=== PATIENT | male | born 1975 | race Two or more races ===

== ENCOUNTER → 2024-01-25 | Outpatient (CLI) | payer OTHER, MEDICAID, SELFPAY ==
--- NOTE | 2024-01-25 10:15 | XR_ITS ---
Examination: Abdomen sonogram, complete Date and time of exam: January 25, 2024 1011 hours INDICATIONS: Diagnosis chronic hepatitis C diagnosis one year ago. Technique: Multiple real-time grayscale transabdominal sonographic images of the abdomen have been obtained. Findings: Multiple gallstones, the largest 16 mm Gallbladder wall 0.5 cm Common bile duct 0.3 cm Pancreatic head 2.9 cm Proximal distal aorta visualized not enlarged Liver 16.9 cm fatty infiltration irregular contour no focal liver lesions Right kidney 11.0 x 5.1 x 5.4 cm cortex 2.0 cm Left kidney 10.6 x 6.2 x 5.5 cm cortex 2.1 cm Mild bilateral renal parenchymal scar formation Spleen 11.7 cm IMPRESSION: Cholelithiasis Abnormally thickened gallbladder wall, clinical correlation advised, consider HIDA scan or MRCP follow-up to exclude cholecystitis Fatty liver, primary hepatocellular disease pattern
== END | disposition home or self-care (01) ==
PROVIDERS: PCP Internal Medicine; Referring Provider Internal Medicine; Visit Provider Internal Medicine
DX: K80.20 Calculus of gallbladder without cholecystitis without obstruction (principal); K82.8 Other specified diseases of gallbladder; K76.0 Fatty (change of) liver, not elsewhere classified
CPT/HCPCS: 76700

== ENCOUNTER → 2024-02-14 | Outpatient (CLI) | payer OTHER, MEDICAID, SELFPAY ==
[2024-02-14 14:42] LABS: Basophils # (Auto) 0.1 Thou/mm3 (0.0-0.2); Basophils % (Auto) 1 % (0-2.5); Eosinophils # (Auto) 0.2 Thou/mm3 (0.0-0.5); Eosinophils % (Auto) 3 % (0-10); Hematocrit 49.4 % (41.0-53.0); Hemoglobin 17.6 g/dL (13.5-16.0); Immature Granulocytes % (Auto) 0 % (0-0); Immature Granulocytes Auto 0.01 Thou/mm3 (0.00-0.00); Lymphocytes # (Auto) 1.7 Thou/mm3 (1.0-4.8); Lymphocytes % (Auto) 32 % (10-50); Mean Corpuscular HGB Conc 35.6 g/dl (31.0-37.0); Mean Corpuscular Hemoglobin 34.6 pg (25.0-35.0); Mean Corpuscular Volume 97 fL (80-100); Monocytes # (Auto) 0.7 Thou/mm3 (0.0-0.8); Monocytes % (Auto) 13 % (0-12); Neutrophils # (Auto) 2.7 Thou/mm3 (1.8-7.7); Neutrophils % (Auto) 51 % (37-80); Nucleated Red Blood Cell % 0 /100 WBC (0); Platelet Count 145 Thou/mm3 (140-440); RDW Standard Deviation 42.6 fL (35.1-43.9); Red Blood Count 5.08 Miln/mm3 (4.50-5.90); White Blood Count 5.2 Thou/mm3 (3.8-10.6)
[2024-02-14 15:21] LABS: Amphetamine/Methamp Scrn,U Positive (Negative); Barbiturate Screen,Urine Negative (Negative); Benzodiazepines Screen,Urine Negative (Negative); Benzoylecgonine Screen, Ur Negative (Negative); Fentanyl Screen,Urine Negative (Negative); Opiate Screen,Urine Negative (Negative); THC Screen,Urine Negative (Negative)
[2024-02-14 15:30] LABS: Alanine Aminotransferase 204 U/L (10-49); Albumin, Serum 4.6 gm/dL (3.5-5.0); Albumin/Globulin Ratio 1.7 (1.2-2.2); Alkaline Phosphatase 123 U/L (46-116); Anion Gap 7 (7-16); Aspartate Amino Transferase 101 U/L (0-34); BUN/Creatinine Ratio 12 Ratio (12-20); Bilirubin,Total 0.6 mg/dL (0.3-1.2); Blood Urea Nitrogen 11 mg/dL (9-23); Calcium 9.7 mg/dL (8.3-10.6); Calcium (Corrected) 9.7 mg/dL (8.5-10.1); Carbon Dioxide 29.6 mMol/L (20.0-31.0); Cardiac Risk Estimate 3.4 RATIO (4.0-6.7); Chloride 104 mMol/L (98-107); Cholesterol 175 mg/dL (132-200); Creatinine (Component) 0.9 mg/dL (0.6-1.3); Globulin 2.7 gm/dL (2.3-3.5); Glucose 91 mg/dL (74-106); HDL Cholesterol 51 mg/dL (40-60); LDL Cholesterol,Calculated 84 mg/dL (0-130); Osmolality,Calculated 280 (275-295); Potassium 4.4 mMol/L (3.4-5.1); Sodium 141 mMol/L (136-145); Thyroid Stimulating Hormone 0.48 uIU/mL (0.55-4.78); Total Protein 7.3 gm/dL (5.7-8.2); Triglycerides 201 mg/dL (30-150); eGFR > 60 See Note
[2024-02-14 15:34] LABS: Folate > 24.00 ng/mL (>5.38); Vitamin B12 552 pg/mL (211-911)
[2024-02-14 16:08] LABS: Glucose Estimated Average 94 mg/dL (80-131); Hemoglobin A1C 4.9 % Hgb (4.8-6.0)
== END | disposition home or self-care (01) ==
LOC: COPL 13:05
PROVIDERS: PCP Internal Medicine; Referring Provider Internal Medicine; Visit Provider Internal Medicine
DX: B18.2 Chronic viral hepatitis C (principal); F31.9 Bipolar disorder, unspecified; R74.01 Elevation of levels of liver transaminase levels; F20.9 Schizophrenia, unspecified; K80.20 Calculus of gallbladder without cholecystitis without obstruction; F10.939 Alcohol use, unspecified with withdrawal, unspecified; F19.10 Other psychoactive substance abuse, uncomplicated
CPT/HCPCS: 36415; 80053; 80061; 80307; 82607; 82746; 83036; 84443; 85025

== ENCOUNTER 2024-03-15 10:30 | Emergency (ER) | payer OTHER, MEDICAID, SELFPAY ==
--- NOTE | 2024-03-15 11:22 | PD.EDSKIN ---
ED Skin Abcess FB-RME/HPI General Chief complaint: Skin/Abscess/Foreign Body Stated complaint: left lower leg bit by spider last night Time Seen by Provider: 03/15/24 10:32 Arrival date/time: 03/15/24 10:30 49-year-old male presents with concerns for spider bite to the left leg patient ports no fever nausea or vomiting reports he was bit by a spider last night Limitations: no limitations Related Data Previous Rx's ?Medication ?Instructions ?Recorded IBU 800 mg tablet (ibuprofen) 800 mg PO Q6H PRN pain #30 tabs 01/26/21 meloxicam 7.5 mg tablet 7.5 mg PO QDAY #7 tabs 10/28/21 ibuprofen 600 mg tablet 600 mg PO Q6H #30 tabs 09/08/22 ibuprofen 800 mg tablet 800 mg PO TID PRN pain #30 tabs 07/21/23 acetaminophen 325 mg capsule 650 mg (2 x 325 mg) PO QID PRN 12/11/23 (Tylenol) fever or pain #30 caps ibuprofen 600 mg tablet 600 mg PO Q8H PRN pain #20 tabs 12/11/23 bacitracin 500 unit/gram topical 1 applic topical TID 7 days #28.4 03/15/24 ointment grams ibuprofen 600 mg tablet 600 mg PO Q6H #30 tabs 03/15/24 Allergies Allergy/AdvReac Type Severity Reaction Status Date / Time No Known Allergies Allergy Verified 03/15/24 10:31 Review of Systems Review of Systems Systems Reviewed: All systems reviewed, normal except as documented Constitutional Constitutional: Reports system reviewed and no additional complaints, except as documented, Denies fever(s) and Denies headache(s) Eyes Eyes: Reports system reviewed and no additional complaints, except as documented and Denies blurry vision ENT Ears, Nose, Mouth, and Throat: Reports system reviewed and no additional complaints, except as documented, Denies headache(s), Denies nasal congestion and Denies nasal discharge Cardiovascular Cardiovascular: Reports system reviewed and no additional complaints, except as documented, Denies chest pain and Denies dyspnea Respiratory Respiratory: Reports system reviewed and no additional complaints, except as documented, Denies chest congestion, Denies cough and Denies dyspnea Gastrointestinal Gastrointestinal: Reports system reviewed and no additional complaints, except as documented and Denies abdominal pain Integumentary/Breasts Skin/Breast: Reports system reviewed and no additional complaints, except as documented, Denies rash and Reports other (Insert bite left leg) Neurologic Neurologic: Reports system reviewed and no additional complaints, except as documented, Reports as per HPI and Denies headache(s) Past Medical History Past Medical History NEUROLOGIC: Negative Neurological Disorders CARDIAC: Negative Cardiac Disorders ED Exam General Limitations: Present no limitations General appearance: Present alert and in no apparent distress Head Head exam: Present atraumatic Eye Eye exam: Present normal appearance, PERRL and EOMI ENT ENT exam: Present normal exam, normal oropharynx and mucous membranes moist Neck Neck exam: Present normal inspection, full ROM and trachea midline Chest Chest inspection: Present normal inspection and symmetric chest wall rise Respiratory Respiratory exam: Present normal lung sounds bilaterally Cardiovascular Cardiovascular exam: Present regular rate, normal rhythm and normal heart sounds Abdominal Exam Abdominal exam: Present soft and normal bowel sounds Extremities Exam Extremities exam: Present normal inspection and full ROM Back Exam Back exam: Present normal inspection and full ROM Neurological Exam Neurological exam: Present alert, oriented X3, CN II-XII intact, normal gait and reflexes normal; Absent motor sensory deficit Psychiatric Psychiatric exam: Present normal affect and normal mood Skin Skin exam: Present warm, dry and other (Small puncture wound concerning for insect bite left calf) Course Quality Measures none Vital Signs Vital signs: O2 saturation 98% room air within normal limits Skin / Abscess / Foreign Body MDM Narrative MDM Narrative:: 49-year-old male presents with concerns for spider bite to the left leg patient ports no fever nausea or vomiting reports he was bit by a spider last night On exam patient has a small insect bite left lower extremity which may be a spider bite no redness or warmth no evidence of cellulitis or abscess Patient given bacitracin ibuprofen Patient discharged home in no distress to follow-up with primary care doctor in the next 24 to 48 hours and for any worsening symptoms to return to the ER immediately Patient data External records reviewed:: [facility] previous records Clinical information provided by:: patient Social determinants that could affect healthcare access:: none Patient has the following chronic illnesses:: See history How is presenting disease/condition affected by chronic disease/condition?: exacerbated by Evaluation data The following diagnostics were reviewed and interpreted by me:: other (specify) (N/A) Lab and/or radiology exams considered but not ordered:: Consider not ordered Interpretation Summary: N/A Medications / Prescriptions Medications or Prescriptions considered but not ordered:: Given Medication administrations:: Given Consultations Consultation(s) initiated? (list below): No Diagnosis Skin/Abscess Differential Diagnosis: abscess of skin or subcutaneous tissue, cellulitis and insect bites Most likely diagnosis given after review of the tests above:: Right Admission Indicated Admission indicated?: not indicated Admission Request Was there a request for admission?: No Disposition Plan Disposition Plan: Discharge Discharge Attestation Discharge Attestation: The patient and all family members were given an opportunity to ask questions and understood the discharge instructions. Discharge instructions specifically effects, indications for sooner follow up or return to the emergency department, and the expected course of current diagnosis. Patient condition: Stable Discharge Plan Plan Patient Disposition: HOME (Self Care) Disposition Comment: Stable Prescriptions/Referrals Prescriptions/Med Rec: New bacitracin 500 unit/gram ointment 1 applic topical TID 7 Days Qty: 28.4 0RF ibuprofen 600 mg tablet 600 mg PO Q6H Qty: 30 0RF No Action ibuprofen [IBU] 800 mg tablet 800 mg PO Q6H PRN (Reason: pain) Qty: 30 0RF meloxicam 7.5 mg tablet 7.5 mg PO QDAY Qty: 7 0RF ibuprofen 800 mg tablet 800 mg PO TID PRN (Reason: pain) Qty: 30 0RF acetaminophen [Tylenol] 325 mg capsule 650 mg PO QID PRN (Reason: fever or pain) Qty: 30 0RF ibuprofen 600 mg tablet 600 mg PO Q8H PRN (Reason: pain) Qty: 20 0RF ibuprofen 600 mg tablet 600 mg PO Q6H Qty: 30 0RF Problem List Clinical Impression: Spider bite Patient/Caregiver Discharge Instructions Education Materials: First Aid: Poisoning Additional Instructions: Please follow up with your primary care doctor in the next 24-48hrs for any worsening symptoms return here immediately Print Language: R[place] Stand Alone Forms: Sophia Award Info., Patient Portal Info Letter PA/GENERAL MANAGER IN TRAINING Supervising Physician PA/GENERAL MANAGER IN TRAINING Supervising Physician: Dr. Dumont
[2024-03-15 11:24] VITALS: BP 113/78; PULSE 85; RESP 16; TEMP 37.2; O2SAT 98; BMI 29.0
== END 2024-03-15 12:30 | disposition home or self-care (01) ==
LOC: SERX 11:29
PROVIDERS: Emergency Provider Emergency Medicine; PCP Internal Medicine
DX: T63.301A Toxic effect of unspecified spider venom, accidental (unintentional), initial encounter (principal)
CPT/HCPCS: 99281

== ENCOUNTER → 2024-04-12 | Outpatient (CLI) | payer OTHER, MEDICAID, SELFPAY ==
--- NOTE | 2024-04-12 12:30 | XR_ITS ---
Examination: Nuclear medicine hepatobiliary scan, static HIDA scan Date of exam: April 12, 2024 1307 hrs. Indications: Elevated liver function tests with sharp abdominal pain 2 months bloating Technique And Findings: 5.7 mCi 99m Hepatolite administered intravenously. Serial imaging obtained immediately through 60 minutes. Homogenous uptake in the liver. Common bile duct small bowel activity noted 1.6 Impression: Gallbladder activity Abnormal gallbladder ejection fraction, 80%, normal greater than 35%
== END | disposition home or self-care (01) ==
PROVIDERS: PCP Internal Medicine; Referring Provider Internal Medicine; Visit Provider Internal Medicine
DX: R93.89 Abnormal findings on diagnostic imaging of other specified body structures (principal)
CPT/HCPCS: 78226; A9537; J2805